=== PATIENT | male | born 1960 | race Caucasian/White ===

== ENCOUNTER 2016-10-16 11:07 | Emergency (ER) | payer SELFPAY ==
[2016-10-16 12:11] LABS: HEMOGLOBIN 14.7 gm/dl (14.0-17.5); RED BLOOD COUNT 4.83 M/UL (4.20-5.50); WHITE BLOOD COUNT 5.6 K/UL (4.5-11.0)
[2016-10-16 12:37] LABS: BUN/CREATININE RATIO 16 (0-10)
== END 2016-10-16 12:15 | disposition left against medical advice (07) ==
LOC: ER1 11:07
PROVIDERS: Emergency Medicine
DX: Z53.21 Procedure and treatment not carried out due to patient leaving prior to being seen by health care provider (principal)
CPT/HCPCS: 80053; 82550; 82553; 83690; 83874; 84484; 85025; 93005

== ENCOUNTER 2021-11-22 21:38 | Emergency (ER) | payer OTHER ==
[2021-11-22 22:51] LABS: BUN/CREATININE RATIO 18 (0-10)
[2021-11-22 23:22] LABS: HEMOGLOBIN 16.6 gm/dl (14.0-17.5); RED BLOOD COUNT 5.2 M/UL (4.20-5.50); WHITE BLOOD COUNT 12.4 K/UL (4.5-11.0)
== END 2021-11-23 00:50 | disposition left against medical advice (07) ==
LOC: ER1 21:38
PROVIDERS: Student in an Organized Health Care Education/Training Program
DX: R07.89 Other chest pain (principal)
CPT/HCPCS: 71045; 80053; 81001; 82550; 82553; 84484; 85025; 93005; 99283

== ENCOUNTER 2021-11-28 21:50 | Emergency (ER) | payer OTHER ==
[2021-11-28 22:38] LABS: HEMOGLOBIN 15.2 gm/dl (14.0-17.5); RED BLOOD COUNT 4.81 M/UL (4.20-5.50); WHITE BLOOD COUNT 13.1 K/UL (4.5-11.0)
[2021-11-28 23:09] LABS: BUN/CREATININE RATIO 21 (0-10)
== END 2021-11-29 07:04 | disposition home or self-care (01) ==
LOC: ER1 21:50
PROVIDERS: Nurse Practitioner
DX: R07.9 Chest pain, unspecified (principal); R53.81 Other malaise; M79.10 Myalgia, unspecified site; F17.210 Nicotine dependence, cigarettes, uncomplicated; Z88.6 Allergy status to analgesic agent; Z20.822 Contact with and (suspected) exposure to COVID-19
CPT/HCPCS: 0240U; 70450; 71045; 80053; 80076; 81001; 82550; 82553; 83880; 84484; 85025; 93005; 99285